=== PATIENT | female | born 1980 | race Caucasian/White ===

== ENCOUNTER 2017-10-07 13:12 | Inpatient (IN) | payer MEDICAID ==
[~2017-10-07] VITALS: Ht 172.7 cm; Wt 73.4 kg
[2017-10-07] MEDS ORDERED: ondansetron/PF 4mg/2ml inj IV ONE (13:45)
[2017-10-07] MEDS ORDERED: Dextrose 10%-water IV solution 1,000 ML IV ONE (13:45)
[2017-10-07] MEDS ORDERED: normal saline 1000ML IV soln IVB ONE (13:45)
[2017-10-07] MEDS ORDERED: HYDROmorphone 1 mg/ml syringe IV ONE (13:45)
[2017-10-07 14:53] LABS: BASOPHILS % (AUTO) 0.1 % (0-1); EOSINOPHILS % (AUTO) 0.4 % (0-6); HEMOGLOBIN 10.5 g/dl (12.0-16.0); LYMPHOCYTES # (AUTO) 2.2 X10'3 (1.1-4.8); LYMPHOCYTES % (AUTO) 21.8 % (21-51); MEAN CORPUSCULAR HEMOGLOBIN 32.5 PG (27.0-31.0); MEAN CORPUSCULAR HGB CONC 32.7 % (33.0-36.5); MEAN CORPUSCULAR VOLUME 99.3 FL (78-98); MEAN PLATELET VOLUME 8.4 FL (7.4-10.4); MONOCYTES # (AUTO) 0.6 X10'3 (0-0.9); MONOCYTES % (AUTO) 5.8 % (2-12); NEUTROPHILS # (AUTO) 7.3 X10'3 (1.8-7.7); NEUTROPHILS % (AUTO) 71.9 % (42-75); PLATELET COUNT 426 X10'3 (140-440); RED BLOOD COUNT 3.23 X10'6 (4.20-5.60); RED CELL DISTRIBUTION WIDTH 15.6 % (11.5-14.5); WHITE BLOOD COUNT 10.1 X10'3 (4.5-11.0)
[2017-10-07 15:16] LABS: PLATELET ESTIMATE NORMAL
[2017-10-07 15:17] LABS: ANISOCYTOSIS 1+; ELLIPTOCYTES FEW; HOWELL-JOLLY BODIES FEW; POLYCHROMASIA FEW; SCHISTOCYTES FEW; TARGET CELLS 2+
[2017-10-07 15:19] LABS: ALANINE AMINOTRANSFERASE 31 U/L (12-78); ALBUMIN 3.1 G/DL (3.4-5.0); ALBUMIN/GLOBULIN RATIO 0.8 (1.1-1.5); ALKALINE PHOSPHATASE 98 IU/L (46-116); ANION GAP 9 (8-16); ASPARTATE AMINO TRANSFERASE 26 U/L (10-37); BILIRUBIN,TOTAL 0.2 MG/DL (0.1-1.0); BLOOD UREA NITROGEN 10 MG/DL (7-18); BUN/CREATININE RATIO 20.4 (6.6-38.0); CALCIUM 8.6 MG/DL (8.5-10.1); CHLORIDE 109 MMOL/L (99-107); CREATININE 0.49 MG/DL (0.40-0.90); GLUCOSE 90 MG/DL (70-104); MAGNESIUM 2.1 MG/DL (1.5-2.4); PHOSPHORUS 3.1 MG/DL (2.3-4.5); POTASSIUM 3.6 MMOL/L (3.5-5.1); SODIUM 142 MMOL/L (135-145); TOTAL CARBON DIOXIDE 23.8 MMOL/L (24-32); TOTAL PROTEIN 7.2 G/DL (6.4-8.2); eGFR > 90 ML/MIN
[2017-10-07 15:54] LABS: URINE HCG NEGATIVE (NEG)
[2017-10-07] MEDS ORDERED: fentaNYL/PF 50MCG/1 ML 2ML syringe IV ONE (17:20)
[2017-10-07] MEDS ORDERED: pantoprazole 40 MG vial IV ONE (17:40)
[2017-10-07] MEDS ORDERED: magnesium 2GM in 50ml NS 50 ML IV PRN (18:25)
[2017-10-07] MEDS ORDERED: magnesium 4gm in 100ml NS 100 ML IV PRN (18:25)
[2017-10-07] MEDS ORDERED: potassium Cl 20 mEq SR tablet PO PRN ×2 (18:25)
[2017-10-07] MEDS ORDERED: mag hydrox/Alum hydrox/simeth 30ml oral suspension PO PRN (18:25)
[2017-10-07] MEDS ORDERED: magnesium hydroxide 30ml (MOM) UD suspension PO PRN (18:25)
[2017-10-07] MEDS ORDERED: potassium Cl 40MEQ/NS 500ml 500 ML IV PRN ×2 (18:25)
[2017-10-07] MEDS ORDERED: acetaminophen 325mg tablet PO PRN (18:25)
[2017-10-07] MEDS ORDERED: magnesium Cl slow-release 64mg tablet PO PRN (18:25)
[2017-10-07] MEDS ORDERED: FENT-92 TD (18:42)
[2017-10-07] MEDS ORDERED: DAPT500V6 (18:54)
[2017-10-07] MEDS ORDERED: ONDA8TAB9 PO (18:54)
[2017-10-07] MEDS ORDERED: DIPH25CA83 PO (18:54)
[2017-10-07 19:22] LABS: OCCULT BLOOD STOOL NEGATIVE (Neg)
[2017-10-07] MEDS: fentaNYL 75 MCG/hour patch.TD72 TD SCH (19:45)
[2017-10-07] MEDS: normal saline 1000ml 1,000 ML IV SCH (19:46)
[2017-10-07] MEDS ORDERED: diphenhydrAMINE 25mg capsule PO SCH (20:00)
[2017-10-07] MEDS ORDERED: fentaNYL/PF 50MCG/1 ML 2ML syringe IV PRN (20:15)
[2017-10-07] MEDS: ondansetron/PF 4mg/2ml inj IV PRN (21:40)
[2017-10-07 21:45] VITALS: BP 101/56
[2017-10-07] MEDS ORDERED: diphenhydrAMINE 50 mg/ml inj ONE (21:47)
[2017-10-07] MEDS ORDERED: morphine 2 MG/ML inj. syringe IV PRN (22:25)
[2017-10-07] MEDS ORDERED: diphenhydrAMINE 50 mg/ml inj IV PRN (22:25)
[2017-10-07] MEDS: morphine 4 MG/ML inj SYRINge IV PRN (23:10)
[2017-10-07 23:50] VITALS: BP 104/61
[2017-10-08] VITALS (9 sets, daily range): BP systolic 92–115; BP diastolic 47–61
[2017-10-08] MEDS: diphenhydrAMINE 50 mg/ml inj IV PRN ×5 (03:02→21:25)
[2017-10-08] MEDS: morphine 4 MG/ML inj SYRINge IV PRN ×5 (03:03→21:25)
[2017-10-08] MEDS: normal saline 1000ml 1,000 ML IV SCH ×3 (05:38→17:01)
[2017-10-08 06:26] LABS: ALANINE AMINOTRANSFERASE 30 U/L (12-78); ALBUMIN 2.8 G/DL (3.4-5.0); ALBUMIN/GLOBULIN RATIO 0.8 (1.1-1.5); ALKALINE PHOSPHATASE 87 IU/L (46-116); ANION GAP 10 (8-16); ASPARTATE AMINO TRANSFERASE 23 U/L (10-37); BILIRUBIN,TOTAL 0.3 MG/DL (0.1-1.0); BLOOD UREA NITROGEN 9 MG/DL (7-18); BUN/CREATININE RATIO 14.5 (6.6-38.0); CALCIUM 8.3 MG/DL (8.5-10.1); CHLORIDE 113 MMOL/L (99-107); CREATININE 0.62 MG/DL (0.40-0.90); GLUCOSE 77 MG/DL (70-104); MAGNESIUM 1.9 MG/DL (1.5-2.4); POTASSIUM 4.2 MMOL/L (3.5-5.1); SODIUM 146 MMOL/L (135-145); TOTAL CARBON DIOXIDE 23.3 MMOL/L (24-32); TOTAL PROTEIN 6.4 G/DL (6.4-8.2); eGFR > 90 ML/MIN
[2017-10-08 06:35] LABS: BASOPHILS % (AUTO) 0.3 % (0-1); EOSINOPHILS # (AUTO) 0.7 X10'3 (0-0.9); EOSINOPHILS % (AUTO) 6.2 % (0-6); HEMATOCRIT 30.9 % (35.0-45.0); HEMOGLOBIN 10.1 g/dl (12.0-16.0); LYMPHOCYTES # (AUTO) 3.3 X10'3 (1.1-4.8); LYMPHOCYTES % (AUTO) 30.2 % (21-51); MEAN CORPUSCULAR HEMOGLOBIN 32.5 PG (27.0-31.0); MEAN CORPUSCULAR HGB CONC 32.7 % (33.0-36.5); MEAN CORPUSCULAR VOLUME 99.3 FL (78-98); MEAN PLATELET VOLUME 9.8 FL (7.4-10.4); MONOCYTES # (AUTO) 0.4 X10'3 (0-0.9); MONOCYTES % (AUTO) 3.9 % (2-12); NEUTROPHILS # (AUTO) 6.5 X10'3 (1.8-7.7); NEUTROPHILS % (AUTO) 59.4 % (42-75); PLATELET COUNT 271 X10'3 (140-440); RED BLOOD COUNT 3.11 X10'6 (4.20-5.60); RED CELL DISTRIBUTION WIDTH 16.5 % (11.5-14.5)
[2017-10-08] MEDS: K and/or MAG REPLACEMENT MC SCH (06:50)
[2017-10-08] MEDS: ondansetron/PF 4mg/2ml inj IV PRN ×3 (07:31→23:10)
[2017-10-08] MEDS ORDERED: MIDAZolam 5mg/ml 2ml vial ONE (09:13)
[2017-10-08] MEDS ORDERED: LIDOcaine Viscous 15ml cup ONE (09:13)
[2017-10-08] MEDS ORDERED: fentaNYL/PF 50MCG/1 ML 2ML syringe ONE (09:13)
[2017-10-08] MEDS ORDERED: FLU VACC QS2017-18 36MOS UP/PF 60 MCG/0.5 ML SYRINGE IMVAC ONE (10:00)
[2017-10-08] MEDS ORDERED: pneumococcal 23-VAL P-sac vacc 25 mcg/0.5ml vial IMVAC ONE (10:00)
[2017-10-08] MEDS ORDERED: magnesium 2GM in 50ml NS 50 ML IV PRN (12:20)
[2017-10-08] MEDS ORDERED: magnesium 4gm in 100ml NS 100 ML IV PRN (12:20)
[2017-10-08] MEDS ORDERED: magnesium Cl slow-release 64mg tablet PO PRN (12:20)
[2017-10-08 13:04] LABS: ALANINE AMINOTRANSFERASE 30 U/L (12-78); ALBUMIN 2.7 G/DL (3.4-5.0); ALBUMIN/GLOBULIN RATIO 0.8 (1.1-1.5); ALKALINE PHOSPHATASE 83 IU/L (46-116); ANION GAP 5 (8-16); ASPARTATE AMINO TRANSFERASE 21 U/L (10-37); BILIRUBIN,TOTAL 0.3 MG/DL (0.1-1.0); BLOOD UREA NITROGEN 9 MG/DL (7-18); CALCIUM 8.1 MG/DL (8.5-10.1); CHLORIDE 112 MMOL/L (99-107); CREATININE 0.69 MG/DL (0.40-0.90); GLUCOSE 91 MG/DL (70-104); MAGNESIUM 1.9 MG/DL (1.5-2.4); PHOSPHORUS 4.5 MG/DL (2.3-4.5); POTASSIUM 3.6 MMOL/L (3.5-5.1); PREALBUMIN 16.2 MG/DL (19-36); SODIUM 145 MMOL/L (135-145); TOTAL CARBON DIOXIDE 28.2 MMOL/L (24-32); TRIGLYCERIDES 53 MG/DL (20-135); eGFR > 90 ML/MIN
[2017-10-08] MEDS: fat emulsion IV 100 ML, MVI, adult No.4 with vit. K 5 ML, Trace element-5 inj. 0.5 ML i... IV SCH ×4 (21:40)
[2017-10-09] VITALS: BP 96/68
[2017-10-09] MEDS: morphine 4 MG/ML inj SYRINge IV PRN ×5 (01:26→20:03)
[2017-10-09] MEDS: diphenhydrAMINE 50 mg/ml inj IV PRN ×5 (01:26→20:02)
[2017-10-09] MEDS: normal saline 1000ml 1,000 ML IV SCH ×2 (03:48→21:24)
[2017-10-09] MEDS: ondansetron/PF 4mg/2ml inj IV PRN ×2 (05:48→14:16)
[2017-10-09 06:23] LABS: BASOPHILS # (AUTO) 0.1 X10'3 (0-0.2); EOSINOPHILS # (AUTO) 0.6 X10'3 (0-0.9); EOSINOPHILS % (AUTO) 8.2 % (0-6); HEMATOCRIT 27.4 % (35.0-45.0); HEMOGLOBIN 9.1 g/dl (12.0-16.0); LYMPHOCYTES # (AUTO) 2.5 X10'3 (1.1-4.8); LYMPHOCYTES % (AUTO) 33.6 % (21-51); MEAN CORPUSCULAR HEMOGLOBIN 32.4 PG (27.0-31.0); MEAN CORPUSCULAR HGB CONC 33.2 % (33.0-36.5); MEAN CORPUSCULAR VOLUME 97.7 FL (78-98); MEAN PLATELET VOLUME 8.9 FL (7.4-10.4); MONOCYTES # (AUTO) 0.7 X10'3 (0-0.9); MONOCYTES % (AUTO) 8.8 % (2-12); NEUTROPHILS # (AUTO) 3.7 X10'3 (1.8-7.7); NEUTROPHILS % (AUTO) 48.4 % (42-75); PLATELET COUNT 392 X10'3 (140-440); RED BLOOD COUNT 2.81 X10'6 (4.20-5.60); RED CELL DISTRIBUTION WIDTH 16.7 % (11.5-14.5); WHITE BLOOD COUNT 7.6 X10'3 (4.5-11.0)
[2017-10-09 06:34] LABS: ALANINE AMINOTRANSFERASE 32 U/L (12-78); ALBUMIN 2.7 G/DL (3.4-5.0); ALBUMIN/GLOBULIN RATIO 0.8 (1.1-1.5); ALKALINE PHOSPHATASE 83 IU/L (46-116); ANION GAP 7 (8-16); ASPARTATE AMINO TRANSFERASE 23 U/L (10-37); BILIRUBIN,TOTAL 0.3 MG/DL (0.1-1.0); BLOOD UREA NITROGEN 6 MG/DL (7-18); BUN/CREATININE RATIO 9.7 (6.6-38.0); CALCIUM 8.2 MG/DL (8.5-10.1); CHLORIDE 109 MMOL/L (99-107); CREATININE 0.62 MG/DL (0.40-0.90); GLUCOSE 83 MG/DL (70-104); MAGNESIUM 1.8 MG/DL (1.5-2.4); PHOSPHORUS 5.2 MG/DL (2.3-4.5); SODIUM 143 MMOL/L (135-145); TOTAL CARBON DIOXIDE 26.8 MMOL/L (24-32); TOTAL PROTEIN 5.9 G/DL (6.4-8.2); eGFR > 90 ML/MIN
[2017-10-09 07:00] VITALS: BP 105/55
[2017-10-09] MEDS: K and/or MAG REPLACEMENT MC SCH (08:00)
[2017-10-09 08:43] LABS: CLARITY,URINE CLOUDY (Clear); COLOR,URINE STRAW (Yellow); GLUCOSE, URINE NEGATIVE (Neg); KETONES,URINE NEGATIVE (Neg); LEUKOCYTE ESTERASE ,URINE NEGATIVE (Neg); NITRITES, URINE NEGATIVE (Neg); OCCULT BLOOD,URINE NEGATIVE (Neg); PROTEIN,URINE NEGATIVE (Neg); UROBILINOGEN,URINE 0.2 E.U/dL (0.2-1.0)
[2017-10-09 08:48] LABS: UA COLLECTION TYPE VOIDED
[2017-10-09 08:52] LABS: MUCUS STRANDS MANY /LPF (Neg); SQUAMOUS EPITHELIAL CELL,UR MANY /LPF (FEW)
[2017-10-09 08:54] LABS: BACTERIA,URINE 1+ /HPF (Neg); HYALINE CASTS 0-3 /LPF (NEGATIVE); RBC,URINE NONE SEEN /HPF (0-2); URINE AMPHETAMINE SCREEN NEGATIVE (Neg); URINE BARBITUATE SCREEN NEGATIVE (Neg); URINE BENZODIAZEPINES SCREEN POSITIVE (Neg); URINE CANNABINOID SCREEN NEGATIVE (Neg); URINE COCAINE SCREEN NEGATIVE (Neg); URINE METHADONE SCREEN NEGATIVE (Neg); URINE OPIATE SCREEN POSITIVE (Neg); URINE PHENCYCLIDINE SCREEN NEGATIVE (Neg); WBC,URINE 0-4 /HPF (0-4)
[2017-10-09 08:55] LABS: CAL OXALATE CRYSTALS 3+ /HPF (NEGATIVE)
[2017-10-09] MEDS ORDERED: diatrozoate meglu/diatrozoate sod (37% iodine) 120ML oral solution PO ONE (10:05)
[2017-10-09] MEDS ORDERED: diatr meglu/diatrizoate 30ml oral sol.-(3 dose) bottle PO ONE (10:30)
[2017-10-09 12:00] VITALS: BP 96/70
[2017-10-09 19:30] VITALS: BP 97/52
[2017-10-09] MEDS ORDERED: glucagon, human recombinant 1mg kit SUBCUT PRN (21:40)
[2017-10-09] MEDS ORDERED: insulin glargine (Lantus) pen - multi-dose SQ SCH (21:40)
[2017-10-09] MEDS ORDERED: dextrose 50%-water 50ml dispensing syringe IV PRN (21:40)
[2017-10-09] MEDS ORDERED: insulin regular, human vial - multi-dose SQ SCH (21:40)
[2017-10-09 22:12] LABS: HEMOGLOBIN A1C 5.5 % (4.5-6.2)
[2017-10-09] MEDS: fat emulsion IV 100 ML, MVI, adult No.4 with vit. K 5 ML, Trace element-5 inj. 0.5 ML i... IV SCH ×4 (23:44)
[2017-10-10] VITALS (9 sets, daily range): BP systolic 92–114; BP diastolic 52–64
[2017-10-10] MEDS: diphenhydrAMINE 50 mg/ml inj IV PRN ×6 (00:09→23:54)
[2017-10-10] MEDS: ondansetron/PF 4mg/2ml inj IV PRN ×3 (00:09→15:54)
[2017-10-10] MEDS: morphine 4 MG/ML inj SYRINge IV PRN ×6 (00:10→23:54)
[2017-10-10] MEDS: K and/or MAG REPLACEMENT MC SCH (08:00)
[2017-10-10 08:24] LABS: BASOPHILS # (AUTO) 0.1 X10'3 (0-0.2); EOSINOPHILS # (AUTO) 0.5 X10'3 (0-0.9); EOSINOPHILS % (AUTO) 6.9 % (0-6); HEMATOCRIT 29.3 % (35.0-45.0); HEMOGLOBIN 9.6 g/dl (12.0-16.0); LYMPHOCYTES % (AUTO) 26.9 % (21-51); MEAN CORPUSCULAR HEMOGLOBIN 32.6 PG (27.0-31.0); MEAN CORPUSCULAR HGB CONC 32.6 % (33.0-36.5); MEAN PLATELET VOLUME 8.7 FL (7.4-10.4); MONOCYTES # (AUTO) 0.7 X10'3 (0-0.9); MONOCYTES % (AUTO) 9.7 % (2-12); NEUTROPHILS # (AUTO) 4.2 X10'3 (1.8-7.7); NEUTROPHILS % (AUTO) 55.5 % (42-75); PLATELET COUNT 393 X10'3 (140-440); RED BLOOD COUNT 2.94 X10'6 (4.20-5.60); RED CELL DISTRIBUTION WIDTH 16.2 % (11.5-14.5); WHITE BLOOD COUNT 7.5 X10'3 (4.5-11.0)
[2017-10-10 08:40] LABS: ALANINE AMINOTRANSFERASE 27 U/L (12-78); ALBUMIN 2.5 G/DL (3.4-5.0); ALBUMIN/GLOBULIN RATIO 0.7 (1.1-1.5); ALKALINE PHOSPHATASE 82 IU/L (46-116); ANION GAP 3 (8-16); ASPARTATE AMINO TRANSFERASE 21 U/L (10-37); BILIRUBIN,TOTAL 0.3 MG/DL (0.1-1.0); BLOOD UREA NITROGEN 11 MG/DL (7-18); CALCIUM 8.2 MG/DL (8.5-10.1); CHLORIDE 106 MMOL/L (99-107); CREATININE 0.61 MG/DL (0.40-0.90); GLUCOSE 93 MG/DL (70-104); MAGNESIUM 1.9 MG/DL (1.5-2.4); PHOSPHORUS 5.5 MG/DL (2.3-4.5); PREALBUMIN 15.1 MG/DL (19-36); SODIUM 140 MMOL/L (135-145); TOTAL CARBON DIOXIDE 30.7 MMOL/L (24-32); TRIGLYCERIDES 71 MG/DL (20-135); eGFR > 90 ML/MIN
[2017-10-10 08:41] LABS: POTASSIUM 4.7 MMOL/L (3.5-5.1)
[2017-10-10] MEDS ORDERED: midazolam 2 mg/2 ml injection IV PRN (13:10)
[2017-10-10] MEDS ORDERED: LIDOcaine 1%/PF (10mg/ml) 5ml vial SQ ONE (13:10)
[2017-10-10] MEDS ORDERED: fentaNYL/PF 50MCG/1 ML 2ML syringe IV PRN (13:10)
[2017-10-10] MEDS: normal saline 1000ml 1,000 ML IV SCH (13:25)
[2017-10-10] MEDS ORDERED: LIDOcaine 1%/PF (10mg/ml) 5ml vial ONE (13:29)
[2017-10-10] MEDS ORDERED: fentaNYL/PF 50MCG/1 ML 2ML syringe ONE (13:30)
[2017-10-10] MEDS ORDERED: heparin sodium, porcine/PF 100unit/ml 5ML syringe ONE (13:30)
[2017-10-10] MEDS ORDERED: midazolam 2 mg/2 ml injection ONE (13:30)
[2017-10-10] MEDS: Dextrose 10%-water IV solution 1,000 ML IV PRN (16:55)
[2017-10-10] MEDS: fat emulsion IV 100 ML, MVI, adult No.4 with vit. K 5 ML, Trace element-5 inj. 0.5 ML i... IV SCH ×4 (19:33)
[2017-10-10] MEDS: ondansetron 4mg rapidly disintigrating tab PO PRN ×2 (19:46→23:54)
[2017-10-10] MEDS: fentaNYL 75 MCG/hour patch.TD72 TD SCH (19:52)
[2017-10-11] VITALS: BP 98/56
[2017-10-11] MEDS: normal saline 1000ml 1,000 ML IV SCH ×2 (02:45→16:05)
[2017-10-11 06:16] LABS: BASOPHILS % (AUTO) 0.3 % (0-1); EOSINOPHILS # (AUTO) 0.5 X10'3 (0-0.9); EOSINOPHILS % (AUTO) 5.8 % (0-6); HEMATOCRIT 30.5 % (35.0-45.0); HEMOGLOBIN 10.2 g/dl (12.0-16.0); LYMPHOCYTES # (AUTO) 1.7 X10'3 (1.1-4.8); LYMPHOCYTES % (AUTO) 19.8 % (21-51); MEAN CORPUSCULAR HEMOGLOBIN 32.9 PG (27.0-31.0); MEAN CORPUSCULAR HGB CONC 33.5 % (33.0-36.5); MEAN CORPUSCULAR VOLUME 98.1 FL (78-98); MEAN PLATELET VOLUME 8.4 FL (7.4-10.4); MONOCYTES # (AUTO) 0.5 X10'3 (0-0.9); MONOCYTES % (AUTO) 6.1 % (2-12); NEUTROPHILS # (AUTO) 5.7 X10'3 (1.8-7.7); PLATELET COUNT 426 X10'3 (140-440); RED BLOOD COUNT 3.11 X10'6 (4.20-5.60); RED CELL DISTRIBUTION WIDTH 15.9 % (11.5-14.5); WHITE BLOOD COUNT 8.4 X10'3 (4.5-11.0)
[2017-10-11 06:32] LABS: ALANINE AMINOTRANSFERASE 25 U/L (12-78); ALBUMIN 2.8 G/DL (3.4-5.0); ALBUMIN/GLOBULIN RATIO 0.8 (1.1-1.5); ALKALINE PHOSPHATASE 90 IU/L (46-116); ANION GAP 6 (8-16); ASPARTATE AMINO TRANSFERASE 16 U/L (10-37); BILIRUBIN,TOTAL 0.2 MG/DL (0.1-1.0); BLOOD UREA NITROGEN 11 MG/DL (7-18); BUN/CREATININE RATIO 15.5 (6.6-38.0); CALCIUM 8.3 MG/DL (8.5-10.1); CHLORIDE 105 MMOL/L (99-107); CREATININE 0.71 MG/DL (0.40-0.90); GLUCOSE 112 MG/DL (70-104); MAGNESIUM 1.7 MG/DL (1.5-2.4); PHOSPHORUS 5.9 MG/DL (2.3-4.5); POTASSIUM 3.8 MMOL/L (3.5-5.1); SODIUM 141 MMOL/L (135-145); TOTAL CARBON DIOXIDE 30.1 MMOL/L (24-32); TOTAL PROTEIN 6.4 G/DL (6.4-8.2); eGFR > 90 ML/MIN
[2017-10-11] MEDS: ondansetron/PF 4mg/2ml inj IV PRN ×3 (07:00→13:58)
[2017-10-11] MEDS: diphenhydrAMINE 50 mg/ml inj IV PRN ×4 (07:08→23:06)
[2017-10-11] MEDS: morphine 4 MG/ML inj SYRINge IV PRN ×4 (07:08→23:07)
[2017-10-11] MEDS: K and/or MAG REPLACEMENT MC SCH (07:15)
[2017-10-11 07:19] VITALS: BP 93/51
[2017-10-11 11:24] VITALS: BP 101/59
[2017-10-11] MEDS: fat emulsion IV 100 ML, MVI, adult No.4 with vit. K 5 ML, Trace element-5 inj. 0.5 ML i... IV SCH ×8 (13:58→23:13)
[2017-10-11] MEDS: ondansetron 4mg rapidly disintigrating tab PO PRN ×2 (18:59→23:07)
[2017-10-11 20:00] VITALS: BP 96/55
[2017-10-12] VITALS: BP 91/51
[2017-10-12] MEDS: morphine 4 MG/ML inj SYRINge IV PRN ×5 (04:43→22:25)
[2017-10-12] MEDS: ondansetron 4mg rapidly disintigrating tab PO PRN ×5 (04:43→22:25)
[2017-10-12] MEDS: diphenhydrAMINE 50 mg/ml inj IV PRN ×5 (04:43→22:24)
[2017-10-12 05:30] LABS: BASOPHILS # (AUTO) 0.1 X10'3 (0-0.2); BASOPHILS % (AUTO) 0.8 % (0-1); EOSINOPHILS # (AUTO) 0.5 X10'3 (0-0.9); EOSINOPHILS % (AUTO) 5.6 % (0-6); HEMATOCRIT 33.4 % (35.0-45.0); HEMOGLOBIN 10.9 g/dl (12.0-16.0); LYMPHOCYTES # (AUTO) 1.8 X10'3 (1.1-4.8); LYMPHOCYTES % (AUTO) 20.7 % (21-51); MEAN CORPUSCULAR HEMOGLOBIN 32.5 PG (27.0-31.0); MEAN CORPUSCULAR HGB CONC 32.6 % (33.0-36.5); MEAN CORPUSCULAR VOLUME 99.8 FL (78-98); MEAN PLATELET VOLUME 8.7 FL (7.4-10.4); MONOCYTES # (AUTO) 0.7 X10'3 (0-0.9); MONOCYTES % (AUTO) 7.5 % (2-12); NEUTROPHILS # (AUTO) 5.8 X10'3 (1.8-7.7); NEUTROPHILS % (AUTO) 65.4 % (42-75); PLATELET COUNT 431 X10'3 (140-440); RED BLOOD COUNT 3.35 X10'6 (4.20-5.60); RED CELL DISTRIBUTION WIDTH 15.8 % (11.5-14.5); WHITE BLOOD COUNT 8.9 X10'3 (4.5-11.0)
[2017-10-12 06:08] LABS: ALANINE AMINOTRANSFERASE 23 U/L (12-78); ALBUMIN 2.7 G/DL (3.4-5.0); ALBUMIN/GLOBULIN RATIO 0.7 (1.1-1.5); ALKALINE PHOSPHATASE 96 IU/L (46-116); ANION GAP 5 (8-16); ASPARTATE AMINO TRANSFERASE 12 U/L (10-37); BILIRUBIN,TOTAL 0.2 MG/DL (0.1-1.0); BLOOD UREA NITROGEN 17 MG/DL (7-18); BUN/CREATININE RATIO 25.8 (6.6-38.0); CALCIUM 8.7 MG/DL (8.5-10.1); CHLORIDE 102 MMOL/L (99-107); CREATININE 0.66 MG/DL (0.40-0.90); GLUCOSE 123 MG/DL (70-104); MAGNESIUM 1.7 MG/DL (1.5-2.4); PHOSPHORUS 4.8 MG/DL (2.3-4.5); POTASSIUM 4.2 MMOL/L (3.5-5.1); SODIUM 137 MMOL/L (135-145); TOTAL CARBON DIOXIDE 29.7 MMOL/L (24-32); TOTAL PROTEIN 6.8 G/DL (6.4-8.2); eGFR > 90 ML/MIN
[2017-10-12 08:00] VITALS: BP 120/62
[2017-10-12] MEDS: K and/or MAG REPLACEMENT MC SCH (08:00)
[2017-10-12] MEDS: fat emulsion IV 100 ML, MVI, adult No.4 with vit. K 5 ML, Trace element-5 inj. 0.5 ML i... IV SCH ×8 (09:18→19:11)
[2017-10-12 12:00] VITALS: BP 100/47
[2017-10-12] MEDS: dextrose 50%-water 50ml dispensing syringe IV PRN (13:45)
[2017-10-12 18:00] VITALS: BP 94/44
[2017-10-13] MEDS: diphenhydrAMINE 50 mg/ml inj IV PRN ×5 (02:30→20:18)
[2017-10-13] MEDS: ondansetron 4mg rapidly disintigrating tab PO PRN ×5 (02:30→20:18)
[2017-10-13] MEDS: morphine 4 MG/ML inj SYRINge IV PRN ×5 (02:30→20:18)
[2017-10-13] MEDS: fat emulsion IV 100 ML, MVI, adult No.4 with vit. K 5 ML, Trace element-5 inj. 0.5 ML i... IV SCH ×8 (04:04→14:27)
[2017-10-13 04:19] LABS: MAGNESIUM 1.6 MG/DL (1.5-2.4); PHOSPHORUS 4.1 MG/DL (2.3-4.5)
[2017-10-13 07:43] VITALS: BP 97/54
[2017-10-13] MEDS: K and/or MAG REPLACEMENT MC SCH (08:00)
[2017-10-13 11:47] VITALS: BP 102/48
[2017-10-13] MEDS: dextrose 50%-water 50ml dispensing syringe IV PRN (13:57)
[2017-10-13 20:00] VITALS: BP 103/53
[2017-10-13] MEDS: fentaNYL 75 MCG/hour patch.TD72 TD SCH (20:33)
[2017-10-14] VITALS: BP 95/53
[2017-10-14] MEDS: ondansetron 4mg rapidly disintigrating tab PO PRN ×5 (01:00→21:02)
[2017-10-14] MEDS: diphenhydrAMINE 50 mg/ml inj IV PRN ×5 (01:22→21:02)
[2017-10-14] MEDS: morphine 2 MG/ML inj. syringe IV PRN ×5 (01:22→21:03)
[2017-10-14 06:37] LABS: MAGNESIUM 1.7 MG/DL (1.5-2.4); PHOSPHORUS 4.7 MG/DL (2.3-4.5); PREALBUMIN 14.5 MG/DL (19-36)
[2017-10-14 07:38] VITALS: BP 93/57
[2017-10-14] MEDS: K and/or MAG REPLACEMENT MC SCH (08:00)
[2017-10-14 08:53] LABS: UREA NITROGEN 24HR,URINE 9.8 GM/24HR (7-20)
[2017-10-14] MEDS: fat emulsion IV 100 ML, MVI, adult No.4 with vit. K 5 ML, Trace element-5 inj. 0.5 ML i... IV SCH ×4 (11:32)
[2017-10-14 18:00] VITALS: BP 101/58
[2017-10-15] VITALS: BP 97/51
[2017-10-15] MEDS: fat emulsion IV 100 ML, MVI, adult No.4 with vit. K 5 ML, Trace element-5 inj. 0.5 ML i... IV SCH ×12 (00:21→22:29)
[2017-10-15] MEDS: diphenhydrAMINE 50 mg/ml inj IV PRN ×6 (01:11→22:23)
[2017-10-15] MEDS: morphine 2 MG/ML inj. syringe IV PRN ×4 (01:12→13:57)
[2017-10-15] MEDS: ondansetron 4mg rapidly disintigrating tab PO PRN ×5 (05:35→22:23)
[2017-10-15] MEDS: K and/or MAG REPLACEMENT MC SCH (08:00)
[2017-10-15 09:45] VITALS: BP 103/56
[2017-10-15 11:57] VITALS: BP 91/45
[2017-10-15] MEDS ORDERED: MORPHINE 2MG in 2ml NS syringe ONE (13:48)
[2017-10-15 16:56] LABS: ALANINE AMINOTRANSFERASE 20 U/L (12-78); ALBUMIN 2.6 G/DL (3.4-5.0); ALBUMIN/GLOBULIN RATIO 0.7 (1.1-1.5); ALKALINE PHOSPHATASE 82 IU/L (46-116); ANION GAP 7 (8-16); ASPARTATE AMINO TRANSFERASE 16 U/L (10-37); BILIRUBIN,TOTAL 0.1 MG/DL (0.1-1.0); BLOOD UREA NITROGEN 14 MG/DL (7-18); BUN/CREATININE RATIO 23.3 (6.6-38.0); CALCIUM 8.2 MG/DL (8.5-10.1); CHLORIDE 106 MMOL/L (99-107); GLUCOSE 152 MG/DL (70-104); POTASSIUM 3.8 MMOL/L (3.5-5.1); SODIUM 140 MMOL/L (135-145); TOTAL CARBON DIOXIDE 27.2 MMOL/L (24-32); TOTAL PROTEIN 6.4 G/DL (6.4-8.2); eGFR > 90 ML/MIN
[2017-10-15 18:00] VITALS: BP 118/59
[2017-10-15] MEDS ORDERED: MORPHINE 2MG in 2ml NS syringe IV PRN (18:01)
[2017-10-15] MEDS ORDERED: morphine 2 MG/ML inj. syringe IV PRN (18:07)
[2017-10-15] MEDS: MORPHINE 2MG in 2ml NS syringe IV PRN ×2 (18:15→22:23)
[2017-10-15 21:21] VITALS: BP 118/59
[2017-10-16] MEDS: diphenhydrAMINE 50 mg/ml inj IV PRN ×6 (02:44→23:04)
[2017-10-16] MEDS: MORPHINE 2MG in 2ml NS syringe IV PRN ×6 (02:45→23:04)
[2017-10-16] MEDS: ondansetron 4mg rapidly disintigrating tab PO PRN ×3 (02:45→19:06)
[2017-10-16 03:20] LABS: ALANINE AMINOTRANSFERASE 24 U/L (12-78); ALBUMIN 2.4 G/DL (3.4-5.0); ALBUMIN/GLOBULIN RATIO 0.6 (1.1-1.5); ALKALINE PHOSPHATASE 81 IU/L (46-116); ANION GAP 6 (8-16); ASPARTATE AMINO TRANSFERASE 22 U/L (10-37); BILIRUBIN,TOTAL 0.1 MG/DL (0.1-1.0); BLOOD UREA NITROGEN 17 MG/DL (7-18); BUN/CREATININE RATIO 29.3 (6.6-38.0); CALCIUM 8.2 MG/DL (8.5-10.1); CHLORIDE 107 MMOL/L (99-107); CREATININE 0.58 MG/DL (0.40-0.90); GLUCOSE 132 MG/DL (70-104); MAGNESIUM 1.7 MG/DL (1.5-2.4); PHOSPHORUS 4.5 MG/DL (2.3-4.5); SODIUM 142 MMOL/L (135-145); TOTAL CARBON DIOXIDE 29.1 MMOL/L (24-32); TOTAL PROTEIN 6.1 G/DL (6.4-8.2); eGFR > 90 ML/MIN
[2017-10-16] MEDS: K and/or MAG REPLACEMENT MC SCH (08:00)
[2017-10-16] MEDS: fat emulsion IV 100 ML, MVI, adult No.4 with vit. K 5 ML, Trace element-5 inj. 0.5 ML i... IV SCH ×8 (09:48→21:50)
[2017-10-16] MEDS: ondansetron/PF 4mg/2ml inj IV PRN ×3 (10:49→23:04)
[2017-10-16 16:20] VITALS: BP 88/51
[2017-10-16 19:00] VITALS: BP 90/47
[2017-10-16] MEDS ORDERED: morphine 4 MG/ML inj SYRINge IV PRN (21:45)
[2017-10-16] MEDS: fentaNYL 75 MCG/hour patch.TD72 TD SCH (21:48)
[2017-10-17 00:18] VITALS: BP 96/53
[2017-10-17] MEDS: diphenhydrAMINE 50 mg/ml inj IV PRN ×5 (03:12→21:07)
[2017-10-17] MEDS: ondansetron 4mg rapidly disintigrating tab PO PRN ×5 (03:12→21:07)
[2017-10-17] MEDS: MORPHINE 2MG in 2ml NS syringe IV PRN ×3 (03:13→12:19)
[2017-10-17 06:48] LABS: ALANINE AMINOTRANSFERASE 22 U/L (12-78); ALBUMIN 2.6 G/DL (3.4-5.0); ALBUMIN/GLOBULIN RATIO 0.8 (1.1-1.5); ALKALINE PHOSPHATASE 77 IU/L (46-116); ANION GAP 8 (8-16); ASPARTATE AMINO TRANSFERASE 16 U/L (10-37); BILIRUBIN,TOTAL 0.2 MG/DL (0.1-1.0); BLOOD UREA NITROGEN 17 MG/DL (7-18); BUN/CREATININE RATIO 27.9 (6.6-38.0); CALCIUM 8.3 MG/DL (8.5-10.1); CHLORIDE 108 MMOL/L (99-107); CREATININE 0.61 MG/DL (0.40-0.90); GLUCOSE 131 MG/DL (70-104); MAGNESIUM 1.7 MG/DL (1.5-2.4); PHOSPHORUS 4.8 MG/DL (2.3-4.5); POTASSIUM 3.9 MMOL/L (3.5-5.1); SODIUM 142 MMOL/L (135-145); TOTAL CARBON DIOXIDE 26.5 MMOL/L (24-32); eGFR > 90 ML/MIN
[2017-10-17 07:06] VITALS: BP 90/51
[2017-10-17] MEDS: K and/or MAG REPLACEMENT MC SCH (08:00)
[2017-10-17] MEDS: fat emulsion IV 100 ML, MVI, adult No.4 with vit. K 5 ML, Trace element-5 inj. 0.5 ML i... IV SCH ×4 (08:22)
[2017-10-17 11:42] VITALS: BP 100/55
[2017-10-17] MEDS ORDERED: diatrozoate meglu/diatrozoate sod (37% iodine) 120ML oral solution ONE (15:14)
[2017-10-17] MEDS ORDERED: MORPHINE 2MG in 2ml NS syringe IV PRN (15:30)
[2017-10-17] MEDS: fat emulsion IV 100 ML, MVI, adult No.4 with vit. K 10 ML, Trace element-5 inj. 1 ML in... IV SCH ×4 (18:50)
[2017-10-17] MEDS: levoFLOXACIN-Levaquin 500mg/D5 100 ML IV SCH (18:59)
[2017-10-17 20:00] VITALS: BP 102/55
[2017-10-17] MEDS: metoclopramide 10mg tablet PO SCH (20:00)
[2017-10-17] MEDS: morphine 4 MG/ML inj SYRINge IV PRN (21:07)
[2017-10-18] VITALS: BP 91/47
[2017-10-18] MEDS: diphenhydrAMINE 50 mg/ml inj IV PRN ×5 (01:09→22:29)
[2017-10-18] MEDS: ondansetron 4mg rapidly disintigrating tab PO PRN ×5 (01:09→22:29)
[2017-10-18] MEDS ORDERED: Dextrose 10%-water IV solution 1,000 ML ONE (01:58)
[2017-10-18] MEDS: dextrose 50%-water 50ml dispensing syringe IV PRN (01:58)
[2017-10-18] MEDS: Dextrose 10%-water IV solution 1,000 ML IV PRN (02:01)
[2017-10-18] MEDS: morphine 4 MG/ML inj SYRINge IV PRN ×3 (03:04→20:15)
[2017-10-18] MEDS: K and/or MAG REPLACEMENT MC SCH (07:32)
[2017-10-18] MEDS: metoclopramide 10mg tablet PO SCH (07:32)
[2017-10-18] MEDS: levoFLOXACIN-Levaquin 500mg/D5 100 ML IV SCH (07:40)
[2017-10-18 07:55] LABS: BASOPHILS # (AUTO) 0.2 X10'3 (0-0.2); BASOPHILS % (AUTO) 2.4 % (0-1); EOSINOPHILS # (AUTO) 0.4 X10'3 (0-0.9); EOSINOPHILS % (AUTO) 6.4 % (0-6); HEMATOCRIT 31.6 % (35.0-45.0); HEMOGLOBIN 10.3 g/dl (12.0-16.0); LYMPHOCYTES # (AUTO) 2.3 X10'3 (1.1-4.8); LYMPHOCYTES % (AUTO) 35.6 % (21-51); MEAN CORPUSCULAR HEMOGLOBIN 32.7 PG (27.0-31.0); MEAN CORPUSCULAR HGB CONC 32.8 % (33.0-36.5); MEAN CORPUSCULAR VOLUME 99.8 FL (78-98); MEAN PLATELET VOLUME 9.1 FL (7.4-10.4); MONOCYTES # (AUTO) 0.5 X10'3 (0-0.9); MONOCYTES % (AUTO) 7.8 % (2-12); NEUTROPHILS # (AUTO) 3.1 X10'3 (1.8-7.7); NEUTROPHILS % (AUTO) 47.8 % (42-75); PLATELET COUNT 350 X10'3 (140-440); RED BLOOD COUNT 3.16 X10'6 (4.20-5.60); RED CELL DISTRIBUTION WIDTH 15.9 % (11.5-14.5); WHITE BLOOD COUNT 6.6 X10'3 (4.5-11.0)
[2017-10-18 08:13] LABS: ALANINE AMINOTRANSFERASE 28 U/L (12-78); ALBUMIN 2.7 G/DL (3.4-5.0); ALBUMIN/GLOBULIN RATIO 0.7 (1.1-1.5); ALKALINE PHOSPHATASE 87 IU/L (46-116); ANION GAP 9 (8-16); ASPARTATE AMINO TRANSFERASE 19 U/L (10-37); BILIRUBIN,TOTAL 0.1 MG/DL (0.1-1.0); BLOOD UREA NITROGEN 14 MG/DL (7-18); BUN/CREATININE RATIO 22.2 (6.6-38.0); CALCIUM 8.7 MG/DL (8.5-10.1); CHLORIDE 106 MMOL/L (99-107); CREATININE 0.63 MG/DL (0.40-0.90); GLUCOSE 101 MG/DL (70-104); POTASSIUM 4.3 MMOL/L (3.5-5.1); SODIUM 141 MMOL/L (135-145); TOTAL CARBON DIOXIDE 26.4 MMOL/L (24-32); TOTAL PROTEIN 6.5 G/DL (6.4-8.2); eGFR > 90 ML/MIN
[2017-10-18] MEDS: fat emulsion IV 100 ML, MVI, adult No.4 with vit. K 10 ML, Trace element-5 inj. 1 ML in... IV SCH ×4 (18:38)
[2017-10-18 20:00] VITALS: BP 90/47
[2017-10-19] MEDS: ondansetron 4mg rapidly disintigrating tab PO PRN ×5 (02:25→20:30)
[2017-10-19] MEDS: diphenhydrAMINE 50 mg/ml inj IV PRN ×5 (02:25→20:30)
[2017-10-19] MEDS: morphine 4 MG/ML inj SYRINge IV PRN ×3 (02:25→20:31)
[2017-10-19 02:54] LABS: ALKALINE PHOSPHATASE 82 IU/L (46-116); ASPARTATE AMINO TRANSFERASE 19 U/L (10-37)
[2017-10-19 02:55] LABS: ALANINE AMINOTRANSFERASE 28 U/L (12-78); ALBUMIN 2.6 G/DL (3.4-5.0); ALBUMIN/GLOBULIN RATIO 0.7 (1.1-1.5); ANION GAP 4 (8-16); BILIRUBIN,TOTAL 0.2 MG/DL (0.1-1.0); BLOOD UREA NITROGEN 11 MG/DL (7-18); BUN/CREATININE RATIO 17.2 (6.6-38.0); CALCIUM 8.4 MG/DL (8.5-10.1); CHLORIDE 105 MMOL/L (99-107); CREATININE 0.64 MG/DL (0.40-0.90); GLUCOSE 126 MG/DL (70-104); PHOSPHORUS 5.3 MG/DL (2.3-4.5); POTASSIUM 4.1 MMOL/L (3.5-5.1); SODIUM 139 MMOL/L (135-145); TOTAL CARBON DIOXIDE 30.2 MMOL/L (24-32); TOTAL PROTEIN 6.1 G/DL (6.4-8.2); eGFR > 90 ML/MIN
[2017-10-19 07:00] VITALS: BP 98/52
[2017-10-19] MEDS: K and/or MAG REPLACEMENT MC SCH (07:02)
[2017-10-19] MEDS: levoFLOXACIN-Levaquin 500mg/D5 100 ML IV SCH (07:07)
[2017-10-19 12:00] VITALS: BP 95/50
[2017-10-19] MEDS: fat emulsion IV 100 ML, MVI, adult No.4 with vit. K 10 ML, Trace element-5 inj. 1 ML in... IV SCH ×4 (16:39)
[2017-10-19 18:30] VITALS: BP 102/54
[2017-10-19] MEDS: fentaNYL 75 MCG/hour patch.TD72 TD SCH (20:31)
[2017-10-19 23:30] VITALS: BP 100/54
[2017-10-20] MEDS: ondansetron 4mg rapidly disintigrating tab PO PRN ×6 (00:34→23:58)
[2017-10-20] MEDS: diphenhydrAMINE 50 mg/ml inj IV PRN ×6 (00:34→23:58)
[2017-10-20] MEDS: morphine 4 MG/ML inj SYRINge IV PRN ×3 (04:26→19:58)
[2017-10-20 07:02] VITALS: BP 104/59
[2017-10-20] MEDS: K and/or MAG REPLACEMENT MC SCH (08:00)
[2017-10-20] MEDS: levoFLOXACIN-Levaquin 500mg/D5 100 ML IV SCH (09:22)
[2017-10-20 11:00] VITALS: BP 102/60
[2017-10-20] MEDS: fat emulsion IV 100 ML, MVI, adult No.4 with vit. K 10 ML, Trace element-5 inj. 1 ML in... IV SCH ×4 (15:49)
[2017-10-20 19:00] VITALS: BP 99/54
[2017-10-21] MEDS: ondansetron 4mg rapidly disintigrating tab PO PRN ×5 (04:00→21:39)
[2017-10-21] MEDS: diphenhydrAMINE 50 mg/ml inj IV PRN ×5 (04:00→21:46)
[2017-10-21] MEDS: morphine 4 MG/ML inj SYRINge IV PRN ×3 (04:01→21:42)
[2017-10-21 04:10] LABS: BASOPHILS % (AUTO) 0.4 % (0-1); EOSINOPHILS # (AUTO) 0.6 X10'3 (0-0.9); EOSINOPHILS % (AUTO) 7.9 % (0-6); HEMATOCRIT 32.2 % (35.0-45.0); HEMOGLOBIN 10.6 g/dl (12.0-16.0); LYMPHOCYTES # (AUTO) 2.9 X10'3 (1.1-4.8); LYMPHOCYTES % (AUTO) 39.6 % (21-51); MEAN PLATELET VOLUME 8.7 FL (7.4-10.4); MONOCYTES # (AUTO) 0.8 X10'3 (0-0.9); MONOCYTES % (AUTO) 10.5 % (2-12); NEUTROPHILS # (AUTO) 3.1 X10'3 (1.8-7.7); NEUTROPHILS % (AUTO) 41.6 % (42-75); PLATELET COUNT 396 X10'3 (140-440); RED BLOOD COUNT 3.22 X10'6 (4.20-5.60); RED CELL DISTRIBUTION WIDTH 15.6 % (11.5-14.5); WHITE BLOOD COUNT 7.4 X10'3 (4.5-11.0)
[2017-10-21 04:24] LABS: ALANINE AMINOTRANSFERASE 31 U/L (12-78); ALBUMIN 2.9 G/DL (3.4-5.0); ALBUMIN/GLOBULIN RATIO 0.7 (1.1-1.5); ALKALINE PHOSPHATASE 87 IU/L (46-116); ANION GAP 7 (8-16); ASPARTATE AMINO TRANSFERASE 23 U/L (10-37); BILIRUBIN,TOTAL 0.1 MG/DL (0.1-1.0); BLOOD UREA NITROGEN 18 MG/DL (7-18); BUN/CREATININE RATIO 26.5 (6.6-38.0); CALCIUM 8.8 MG/DL (8.5-10.1); CHLORIDE 101 MMOL/L (99-107); CREATININE 0.68 MG/DL (0.40-0.90); GLUCOSE 106 MG/DL (70-104); MAGNESIUM 1.7 MG/DL (1.5-2.4); PHOSPHORUS 5.3 MG/DL (2.3-4.5); POTASSIUM 4.1 MMOL/L (3.5-5.1); SODIUM 137 MMOL/L (135-145); TOTAL CARBON DIOXIDE 29.4 MMOL/L (24-32); eGFR > 90 ML/MIN
[2017-10-21 04:41] LABS: UREA NITROGEN 24HR,URINE 14.8 GM/24HR (7-20)
[2017-10-21] MEDS: K and/or MAG REPLACEMENT MC SCH (08:00)
[2017-10-21] MEDS: fat emulsion IV 100 ML, MVI, adult No.4 with vit. K 10 ML, Trace element-5 inj. 1 ML in... IV SCH ×4 (16:27)
[2017-10-21 20:00] VITALS: BP 104/55
[2017-10-22] VITALS: BP 110/63
[2017-10-22] MEDS: ondansetron 4mg rapidly disintigrating tab PO PRN ×4 (02:00→23:40)
[2017-10-22] MEDS: diphenhydrAMINE 50 mg/ml inj IV PRN ×4 (02:00→23:40)
[2017-10-22 08:00] VITALS: BP 99/61
[2017-10-22] MEDS: K and/or MAG REPLACEMENT MC SCH (08:00)
[2017-10-22] MEDS: fat emulsion IV 100 ML, MVI, adult No.4 with vit. K 10 ML, Trace element-5 inj. 1 ML in... IV SCH ×8 (08:10→19:12)
[2017-10-22] MEDS: morphine 4 MG/ML inj SYRINge IV PRN ×2 (09:54→18:57)
[2017-10-22 11:00] VITALS: BP 102/57
[2017-10-22] MEDS ORDERED: diatrozoate meglu/diatrozoate sod (37% iodine) 120ML oral solution ONE ×2 (12:20)
[2017-10-22] MEDS ORDERED: BARIUM SULFATE 340 ML SUSP.RECON***PROCEDURE AREA ONLY**DONT ENTER PO ONE (12:45)
[2017-10-22 20:00] VITALS: BP 101/57
[2017-10-22] MEDS: fentaNYL 75 MCG/hour patch.TD72 TD SCH (20:56)
[2017-10-23] VITALS: BP 104/53
[2017-10-23] MEDS: ondansetron 4mg rapidly disintigrating tab PO PRN ×4 (03:53→19:14)
[2017-10-23] MEDS: morphine 4 MG/ML inj SYRINge IV PRN ×2 (03:53→13:36)
[2017-10-23] MEDS: diphenhydrAMINE 50 mg/ml inj IV PRN ×4 (03:54→19:14)
[2017-10-23 07:17] VITALS: BP 107/57
[2017-10-23] MEDS: K and/or MAG REPLACEMENT MC SCH (08:00)
[2017-10-23 10:39] LABS: ALBUMIN/GLOBULIN RATIO 0.7 (1.1-1.5); ANION GAP 5 (8-16); BUN/CREATININE RATIO 22.8 (6.6-38.0); eGFR 83 ML/MIN
[2017-10-23 11:00] VITALS: BP 100/55
[2017-10-23 13:12] LABS: BASOPHILS # (AUTO) 0.1 X10'3 (0-0.2); BASOPHILS % (AUTO) 1.2 % (0-1); EOSINOPHILS # (AUTO) 0.6 X10'3 (0-0.9); EOSINOPHILS % (AUTO) 6.1 % (0-6); HEMATOCRIT 30.5 % (35.0-45.0); HEMOGLOBIN 10.2 g/dl (12.0-16.0); LYMPHOCYTES # (AUTO) 2.3 X10'3 (1.1-4.8); LYMPHOCYTES % (AUTO) 25.4 % (21-51); MEAN CORPUSCULAR HEMOGLOBIN 33.2 PG (27.0-31.0); MEAN CORPUSCULAR HGB CONC 33.4 % (33.0-36.5); MEAN CORPUSCULAR VOLUME 99.4 FL (78-98); MEAN PLATELET VOLUME 8.2 FL (7.4-10.4); MONOCYTES # (AUTO) 1.1 X10'3 (0-0.9); MONOCYTES % (AUTO) 12.3 % (2-12); PLATELET COUNT 344 X10'3 (140-440); RED BLOOD COUNT 3.06 X10'6 (4.20-5.60); RED CELL DISTRIBUTION WIDTH 15.6 % (11.5-14.5); WHITE BLOOD COUNT 9.1 X10'3 (4.5-11.0)
[2017-10-23 13:27] LABS: ALANINE AMINOTRANSFERASE 31 U/L (12-78); ALBUMIN 2.7 G/DL (3.4-5.0); ALBUMIN/GLOBULIN RATIO 0.7 (1.1-1.5); ALKALINE PHOSPHATASE 90 IU/L (46-116); ANION GAP 6 (8-16); ASPARTATE AMINO TRANSFERASE 30 U/L (10-37); BILIRUBIN,TOTAL 0.3 MG/DL (0.1-1.0); BLOOD UREA NITROGEN 19 MG/DL (7-18); BUN/CREATININE RATIO 29.7 (6.6-38.0); CALCIUM 8.7 MG/DL (8.5-10.1); CHLORIDE 102 MMOL/L (99-107); CREATININE 0.64 MG/DL (0.40-0.90); GLUCOSE 100 MG/DL (70-104); POTASSIUM 4.2 MMOL/L (3.5-5.1); SODIUM 138 MMOL/L (135-145); TOTAL CARBON DIOXIDE 30.1 MMOL/L (24-32); TOTAL PROTEIN 6.7 G/DL (6.4-8.2); eGFR > 90 ML/MIN
[2017-10-23] MEDS ORDERED: methylnaltrexone br 12mg/0.6ml inj***SubQ only SQ SCH (16:25)
[2017-10-23 20:00] VITALS: BP 103/50
[2017-10-24] VITALS: BP 99/62
[2017-10-24] MEDS: diphenhydrAMINE 50 mg/ml inj IV PRN ×4 (00:25→14:47)
[2017-10-24] MEDS: ondansetron 4mg rapidly disintigrating tab PO PRN ×4 (00:26→14:47)
[2017-10-24] MEDS: morphine 4 MG/ML inj SYRINge IV PRN ×2 (00:26→10:06)
[2017-10-24 04:39] LABS: MAGNESIUM 1.7 MG/DL (1.5-2.4); PHOSPHORUS 5.2 MG/DL (2.3-4.5)
[2017-10-24 07:10] VITALS: BP 107/57
[2017-10-24] MEDS: K and/or MAG REPLACEMENT MC SCH (08:00)
[2017-10-24 11:11] VITALS: BP 116/67
[2017-10-24] MEDS ORDERED: FENT-92 TD (13:43)
[2017-10-24] MEDS ORDERED: heparin sodium, porcine/PF 100unit/ml 5ML syringe ICATH ONE (14:45)
[2017-10-24] MEDS ORDERED: heparin sodium, porcine/PF 100unit/ml 5ML syringe IV SCH (16:00)
== END 2017-10-24 15:50 | disposition home or self-care (01) | DRG 254 ==
LOC: ER 13:14 → EEVIPCON 18:01 → ED HOLD 18:01 → MED 3N 21:37
PROVIDERS: ADMIT Internal Medicine; ATTEND Internal Medicine
PROC: 0DJ08ZZ Inspection of Upper Intestinal Tract, Via Natural or Artificial Opening Endoscopic (ICD-10-PCS; 2017-10-08)
PROC: 02HV33Z Insertion of Infusion Device into Superior Vena Cava, Percutaneous Approach (ICD-10-PCS; principal; 2017-10-10)
PROC: 3E0436Z Introduction of Nutritional Substance into Central Vein, Percutaneous Approach (ICD-10-PCS; 2017-10-10)
PROC: B548ZZA Ultrasonography of Superior Vena Cava, Guidance (ICD-10-PCS; 2017-10-10)
PROC: 0JH63WZ Insertion of Totally Implantable Vascular Access Device into Chest Subcutaneous Tissue and Fascia, Percutaneous Approach (ICD-10-PCS; 2017-10-10)
PROC: BD11YZZ Fluoroscopy of Esophagus using Other Contrast (ICD-10-PCS; 2017-10-17)
PROC: BD16YZZ Fluoroscopy of Upper GI and Small Bowel using Other Contrast (ICD-10-PCS; 2017-10-22)
DX: K31.84 Gastroparesis (principal); E43 Unspecified severe protein-calorie malnutrition; M32.9 Systemic lupus erythematosus, unspecified; Z93.1 Gastrostomy status; T40.605A Adverse effect of unspecified narcotics, initial encounter; G89.29 Other chronic pain; K59.00 Constipation, unspecified; Z90.3 Acquired absence of stomach [part of]; Z90.81 Acquired absence of spleen; Z90.49 Acquired absence of other specified parts of digestive tract; Z98.84 Bariatric surgery status; Z28.21 Immunization not carried out because of patient refusal; Z88.1 Allergy status to other antibiotic agents; Z88.0 Allergy status to penicillin; Z88.8 Allergy status to other drugs, medicaments and biological substances; Z79.899 Other long term (current) drug therapy; Z68.23 Body mass index [BMI] 23.0-23.9, adult; Y92.89 Other specified places as the place of occurrence of the external cause
CPT/HCPCS: 36415; 36561; 74018; 74176; 74220; 74245; 76937; 77001; 80053; 80305; 81001; 81025; 82272; 82948; 83036; 83735; 84100; 84134; 84443; 84478; 84484; 84560; 85025; 86885; 86900; 86901; 87040; 87070; 93005; 93306; 96361; 96374; 96375; 99152; 99153; 99285; A4620; A6219; A6257; A6258; A6402; C1788; C1894; C9113; G0500; J1170; J1200; J1642; J1815; J1956; J2001; J2212; J2250; J2270; J2274; J2405; J3010; J7030; J8597; Q9963